=== PATIENT | female | born 1930 | race Caucasian/White ===

== ENCOUNTER 2017-11-21 09:10 | Day surgery (SDC) | payer MEDICARE, BC ==
[~2017-11-21 09:10] MED LIST: Albuterol 0.083% 2.5 MG/3 ML Neb Soln NEB ONE; Bisacodyl 5 MG Tab PO PRN; Docusate Sodium 100 MG Cap PO SCH; EPINEPHrine 1 MG/ML 30 ML MDV ONE; EPINEPHrine 1 MG/ML SDV ONE; Ketorolac 15 MG/ML SDV IVPUSH PRN; Lactated Ringers 1,000 ML IV SCH; Lidocaine 1%/Sod Bicarbonate in NS 8.4% 1 ML Syringe IDERM PRN; Magnesium Hydroxide 400 MG/5 ML Susp 30 ML Cup PO PRN; Morphine 2 MG/ML Syringe IVPUSH PRN; Naloxone 0.4 MG/ML SDV IVPUSH PRN; Ondansetron 4 MG/2 ML SDV IVPUSH PRN; Ropivacaine 0.5% 5 MG/ML 30 ML SDV ONE; Sennosides 8.6 MG Tab PO PRN; Sodium Chloride 0.9% 10 ML Syringe FLUSH PRN
[2017-11-21] MEDS: Lactated Ringers 1,000 ML IV SCH ×2 (09:30→15:48)
[2017-11-21] MEDS ORDERED: ceFAZolin 1 GM Vial ONE ×2 (09:44→09:57)
[2017-11-21] MEDS ORDERED: Iodine/Sodium Iodide 2% Tincture 30 ML Bottle ONE (09:44)
[2017-11-21] MEDS ORDERED: Bupivacaine 0.25% 30 ML SDV ONE (09:44)
[2017-11-21] MEDS ORDERED: Lidocaine 1% 2 ML ONE (09:49)
[2017-11-21] MEDS ORDERED: Propofol 200 MG/20 ML SDV ONE (09:49)
[2017-11-21] MEDS ORDERED: fentaNYL 100 MCG/2 ML SDV ONE (09:50)
[2017-11-21] MEDS ORDERED: Bupivacaine 0.75% 30 ML SDV ONE (09:55)
--- NOTE | 2017-11-21 09:56 | PCM.PREANE ---
Preanesthetic Assessment - Anesthesia/Transfusion/Family Hx Anesthesia History: Prior Anesthesia Without Reaction Family History of Anesthesia Reaction: No Transfusion History: No Prior Transfusion(s) Intubation History: Unknown - Review of Systems General: No Symptoms Pulmonary: No Symptoms (COPD (emphysema)Asthma) Cardiovascular: No Symptoms (HTN), Palpitations, Dyspnea on Exertion (steps) Gastrointestinal: No Symptoms, Constipation Neurological: No Symptoms Other: Reports: Easy Bleeding, Easy Bruising - Physical Assessment NPO Status Date: 11/20/17 NPO Status Time: 21:00 Pulse: 81 O2 Sat by Pulse Oximetry: 96 Respiratory Rate: 20 Blood Pressure: 160/88 Temperature: 37.1 C Vital Signs: Last Vital Signs Temp 37.1 C 11/21/17 09:10 Pulse 81 11/21/17 09:10 Resp 20 11/21/17 09:10 BP 160/88 H 11/21/17 09:10 Pulse Ox 96 11/21/17 09:10 Height: 1.63 m Weight: 63.503 kg ASA Class: 3 Mental Status: Alert & Oriented x3 Airway Class: Mallampati = 2 Dentition: Reports: Normal Dentition, Caries (3) Thyro-Mental Finger Breadths: 3 Mouth Opening Finger Breadths: 3 ROM/Head Extension: Full Lungs: Clear to Auscultation, Normal Respiratory Effort Cardiovascular: Regular Rate, Regular Rhythm, No Murmurs - Lab Values: Laboratory Last Values MRSA (PCR) Negative 10/28/17 12:36 All lab values reviewed and noted and within acceptable ranges to proceed with scheduled procedure. - Imaging/EKG Impressions: EKG: Sinus tachycardia rate 118, with PVC's noted. CXR:negative - Allergies Allergies/Adverse Reactions: Allergies Allergy/AdvReac Type Severity Reaction Status Date / Time No Known Allergies Allergy Verified 11/18/17 15:37 - Anesthesia Plan Pre-Op Medication Ordered: None - Acknowledgements Anesthesia Type Planned: Spinal (Right adductor canal block under US guidance for post operative pain control requested by Dr. Gaines) Pt an Appropriate Candidate for the Planned Anesthesia: Yes Alternatives and Risks of Anesthesia Discussed w Pt/Guardian: Yes Pt/Guardian Understands and Agrees with Anesthesia Plan: Yes PreAnesthesia Questionnaire HEENT History: Reports: Impaired Vision, Other (See Below) Other HEENT History: wears glasses, yag procedure Cardiovascular History: Reports: High Cholesterol, Hypertension, Other (See Below) Other Cardiovascular History: premature atiral complexes Respiratory History: Reports: Asthma, Other (See Below) Other Respiratory History: wheezing, emphysema, pneumonia, cough Gastrointestinal History: Reports: Chronic Constipation, Hemorrhoids TONGUE AND QUARTER STITCHER History: Reports: None Musculoskeletal History: Reports: Osteoarthritis, Other (See Below) Other Musculoskeletal History: right rotator cuff tear, closed distal radius fracture Neurological History: Reports: None Psychiatric History: Reports: None Endocrine/Metabolic History: Reports: Vitamin D Deficiency Hematologic History: Reports: None Immunologic History: Reports: None Oncologic (Cancer) History: Reports: Other (See Below) Other Oncologic History: endometrial Dermatologic History: Reports: None - Past Surgical History Head Surgeries/Procedures: Reports: None HEENT Surgical History: Reports: Cataract Surgery Cardiovascular Surgical History: Reports: None Respiratory Surgical History: Reports: None GI Surgical History: Reports: Colonoscopy, Hernia Repair/Other Female Surgical History: Reports: Hysterectomy Male Surgical History: Reports: None Endocrine Surgical History: Reports: None Neurological Surgical History: Reports: None Musculoskeletal Surgical History: Reports: Other (See Below) Other Musculoskeletal Surgeries/Procedures:: right total shoulder replacmenet Oncologic Surgical History: Reports: None Dermatological Surgical History: Reports: None - SUBSTANCE USE Smoking Status *Q: Never Smoker Recreational Drug Use History: No - HOME MEDS Home Medications: Home Meds Albuterol Sulfate [Proair Hfa] 2 puff INH QID PRN 09/16/17 [History] Albuterol/Ipratropium [DuoNeb 3.0-0.5 MG/3 ML] 1 dose NEB QID PRN 09/16/17 [ History] Aspirin [Halfprin] 81 mg PO DAILY 09/16/17 [History] Calcium Carbonate [Calcium] 500 mg PO DAILY 09/16/17 [History] Cholecalciferol (Vitamin D3) [Vitamin D3] 5,000 unit PO DAILY 09/16/17 [History] Diltiazem HCl [Cardizem] 120 mg PO DAILY 09/16/17 [History] Docusate Sodium [Colace] 50 mg PO BID 09/16/17 [History] Fluticasone/Salmeterol [Advair 250-50 Diskus] 1 puff INH BID 09/16/17 [History] Magnesium Oxide [Magnesium] 500 mg PO DAILY 09/16/17 [History] Rosuvastatin [Crestor] 10 mg PO DAILY 09/16/17 [History] Theophylline [Theophylline Anhydrous] 600 mg PO DAILY 09/16/17 [History] - CURRENT (IN HOUSE) MEDS Current Meds: Current Medications Aspirin (Ecotrin) 325 mg PO BID NAE Bisacodyl (Dulcolax) 5 mg PO DAILY PRN PRN Reason: Constipation Morphine Sulfate 8 mg/Epinephrine HCl 0.3 mg/Cefuroxime Sodium 750 mg/Ketorolac Tromethamine 30 mg/Sodium Chloride 27.9 ml 0 mg .XX ONETIME ONE Stop: 11/21/17 11:01 Docusate Sodium (Colace) 100 mg PO BID NAE Famotidine (Pepcid) 20 mg PO Q12H NAE Cefazolin Sodium/Dextrose 2 gm (/ Premix) 50 mls @ 100 mls/hr IV Q8H NAE Stop: 11/21/17 23:44 Ketorolac Tromethamine (Toradol) 15 mg IVPUSH Q6H PRN PRN Reason: Pain Magnesium Hydroxide (Milk Of Magnesia) 30 ml PO BID PRN PRN Reason: Constipation Morphine Sulfate (Morphine) 2 mg IVPUSH Q2H PRN PRN Reason: Breakthrough Pain Naloxone HCl (Narcan) 0.1 mg IVPUSH Q5M PRN PRN Reason: Oversedation Ondansetron HCl (Zofran) 4 mg IVPUSH Q6H PRN PRN Reason: Nausea/Vomiting Oxycodone/Acetaminophen (Percocet 325-5 Mg) 1 - 2 tab PO Q4H PRN PRN Reason: Pain Senna (Senna) 8.6 mg PO BID PRN PRN Reason: Constipation Discontinued Medications Albuterol (Proventil Neb Soln) 2.5 mg NEB ONETIME ONE Stop: 09/19/17 08:01 Bupivacaine HCl (Marcaine 0.25%) Confirm Administered Dose 30 ml .ROUTE .STK- MED ONE Stop: 11/21/17 09:45 Cefazolin Sodium (Ancef) Confirm Administered Dose 2 gm .ROUTE .STK-MED ONE Stop: 11/21/17 09:45 Epinephrine HCl (Adrenalin) Confirm Administered Dose 30 mg .ROUTE .STK-MED ONE Stop: 11/21/17 07:38 Epinephrine HCl (Adrenalin) Confirm Administered Dose 1 mg .ROUTE .STK-MED ONE Stop: 11/21/17 07:38 Lactated Ringer's (Ringers, Lactated) 1,000 mls @ 125 mls/hr IV ASDIRECTED NAE Stop: 09/19/17 23:00 Iodine (Iodine 2% Mild Tincture) Confirm Administered Dose 30 ml .ROUTE .STK- MED ONE Stop: 11/21/17 09:45 Lidocaine/Sodium Bicarbonate (Buffered Lidocaine 1% In Ns 8.4%) 0.25 ml IDERM ONETIME PRN PRN Reason: Prior to IV Start Stop: 09/19/17 18:00 Ropivacaine (Naropin 0.5%) Confirm Administered Dose 30 ml .ROUTE .STK-MED ONE Stop: 11/21/17 07:38 Sodium Chloride (Saline Flush) 10 ml FLUSH ASDIRECTED PRN PRN Reason: Keep Vein Open Stop: 09/19/17 18:00 Tranexamic Acid (Cyklokapron) Confirm Administered Dose 1,000 mg .ROUTE .STK- MED ONE Stop: 11/21/17 09:45 Vancomycin HCl (Vancomycin) Confirm Administered Dose 1 gm .ROUTE .STK-MED ONE Stop: 11/21/17 09:45
[2017-11-21] MEDS ORDERED: Lidocaine 1%/Sod Bicarbonate in NS 8.4% 1 ML Syringe IDERM ONE (10:14)
[2017-11-21] MEDS ORDERED: fentaNYL 100 MCG/2 ML SDV IVPUSH PRN (10:39)
[2017-11-21] MEDS ORDERED: Ondansetron 4 MG/2 ML SDV IVPUSH PRN (10:39)
[2017-11-21] MEDS ORDERED: ePHEDrine/Normal Saline 25 MG/5 ML Syringe ONE (10:45)
[2017-11-21] MEDS ORDERED: Morphine 8 MG, EPINEPHrine 0.3 MG, Cefuroxime 750 MG, Ketorolac 30 MG, Sodium Chloride ... ONE ×5 (11:00)
[2017-11-21] MEDS ORDERED: Lactated Ringers 1,000 ML ONE (11:07)
[2017-11-21] MEDS: Vancomycin 1 GM SDV ONE ×2 (11:29→11:31)
[2017-11-21] MEDS ORDERED: Albuterol/Ipratropium 3.0-0.5 MG/3 ML Neb Soln NEB PRN (12:00)
[2017-11-21] MEDS ORDERED: Albuterol 6.7 GM Inhaler INH PRN (12:00)
--- NOTE | 2017-11-21 12:11 | PCM.POSTAN ---
POST ANESTHESIA ASSESSMENT - MENTAL STATUS Mental Status: Alert, Oriented - VITAL SIGNS Pulse Rate: 81 SaO2: 93 Resp Rate: 16 Blood Pressure: 111/55 Temperature: 36.6 C - RESPIRATORY Respiratory Status: Respiratory Rate WNL, Airway Patent, O2 Saturation Stable - CARDIOVASCULAR CV Status: Pulse Rate WNL, Blood Pressure Stable - GASTROINTESTINAL GI Status: No Symptoms - PAIN Pain Score: 0 - POST OP HYDRATION Hydration Status: Adequate & Stable - OBSERVATIONS Free Text/Narrative:: no anesthesia complications noted
--- NOTE | 2017-11-21 12:34 | PCM.SN ---
- Free Text/Narrative Note: Right selective femoral nerve block at the adductor canal for post-procedure pain control Time Out: 1219 Start: 1219 End: 1226 Chart reviewed. Consent signed. Questions answered. Appropriate monitors applied. Time out performed. Right mid-shaft femur evaluated with ultrasound. Scanning medially femur, I was able to identify the femoral artery in the adductor canal. The saphenous nerve was lateral to the artery. The skin was prepped lateral to the ultrasound probe with chlorahexadine. The 21ga 4 insulated block needle was inserted under direct ultrasound guidance into the adductor canal. 20 mL of 0.5% ropivacaine with 1:200,000 epinephrine was injected cirmcumferentially about the nerve with intermittent negative aspiration every 5mL. Patient tolerated the procedure well. See pictures on progress note and vital signs on nurses notes. Block completed postoperatively. Ksahif Friedman CRNA
--- NOTE | 2017-11-21 12:53 | CR ---
Right knee: AP and lateral views of the right knee were obtained. Comparison: No prior study. Knee prosthesis is seen. Components are aligned. Soft tissue air noted from the surgical procedure. Underlying bony structures appear intact. Impression: 1. Satisfactory radiographic appearance of recently placed right knee prosthesis. Diagnostic code #2
[2017-11-21] MEDS: Famotidine 20 MG Tab PO SCH ×2 (17:27→20:07)
[2017-11-21] MEDS: ceFAZolin 2 GM in Premix Bag 1 BAG IV SCH (18:13)
--- NOTE | 2017-11-21 18:53 | PCM.SN ---
- Free Text/Narrative Note: In to see Renard. Overall she is doing well s/p R TKA day 0. She currently states her pain is controlled. Denies F/C, Headache, N/V/D, Chest pain, SOB, Cough. Working with Physical Therapy. Urinating. Using Incentive Spirometry. No supplemental O2. DVT prophylaxis. Physical Exam unremarkable- PERRLA, Lungs Clear, Normal Heart sounds, Neurovascularly intact in extremities with 2+ pulses. No other concerns from nursing.
[2017-11-21] MEDS: Acetaminophen/oxyCODONE 325-5 MG Tab PO PRN ×2 (20:07→21:33)
[2017-11-21] MEDS ORDERED: Non-Formulary Medication 1 Each (Docusate Sodium [Colace] 50 MG) PO SCH (21:00)
[2017-11-21] MEDS: Aspirin 325 MG Tab.EC PO SCH (21:44)
[2017-11-21] MEDS: FLUTICASONE INH SCH (22:21)
[2017-11-21] MEDS: SALMETEROL INH SCH (22:21)
[2017-11-22] MEDS: Acetaminophen/oxyCODONE 325-5 MG Tab PO PRN ×2 (00:47→06:31)
[2017-11-22] MEDS: ceFAZolin 2 GM in Premix Bag 1 BAG IV SCH ×2 (02:11→09:23)
[2017-11-22] MEDS: Famotidine 20 MG Tab PO SCH (06:31)
--- NOTE | 2017-11-22 06:45 | PCM.CONSN ---
- General Info Date of Service: 11/22/17 Subjective Update: In to see Renard. She is doing very well. She has been working with therapies. No nursing or patient concerns. Pain is controlled. Functional Status: Reports: Pain Controlled, Tolerating Diet, Ambulating, Urinating, Incentive Spirometry. Denies: New Symptoms - Review of Systems General: Reports: No Symptoms. Denies: Weakness, Fatigue, Malaise HEENT: Reports: No Symptoms. Denies: Sore Throat Pulmonary: Reports: No Symptoms. Denies: Shortness of Breath, Cough, Sputum, Wheezing Cardiovascular: Reports: No Symptoms. Denies: Chest Pain, Palpitations Gastrointestinal: Reports: No Symptoms. Denies: Abdominal Pain, Constipation, Diarrhea, Nausea, Vomiting Genitourinary: Reports: No Symptoms Musculoskeletal: Reports: No Symptoms Skin: Reports: No Symptoms Neurological: Reports: No Symptoms. Denies: Confusion Psychiatric: Reports: No Symptoms - Patient Data Vitals - Most Recent: Last Vital Signs Temp 97.5 F 11/22/17 04:19 Pulse 65 11/22/17 04:19 Resp 18 11/22/17 04:19 BP 110/54 L 11/22/17 04:19 Pulse Ox 92 L 11/22/17 04:19 Weight - Most Recent: 140 lb I&O - Last 24 Hours: Intake & Output 11/21/17 11/21/17 11/22/17 14:59 22:59 06:59 Intake Total 100 180 50 Output Total 325 450 400 Balance -225 -270 -350 Med Orders - Current: Current Medications Albuterol (Proventil Hfa) 0 gm INH QID PRN PRN Reason: asthma Albuterol/Ipratropium (Duoneb 3.0-0.5 Mg/3 Ml) 3 ml NEB QID PRN PRN Reason: asthma Aspirin (Ecotrin) 325 mg PO BID [facility] Last Admin: 11/21/17 21:44 Dose: Not Given Bisacodyl (Dulcolax) 5 mg PO DAILY PRN PRN Reason: Constipation Calcium Carbonate/Glycine (Tums) 500 mg PO DAILY@1200 [facility] Cholecalciferol (Vitamin D3) 5,000 unit PO DAILY@1200 [facility] Diltiazem HCl (Cardizem Cd) 120 mg PO DAILY [facility] Famotidine (Pepcid) 20 mg PO Q12H [facility] Last Admin: 11/22/17 06:31 Dose: 20 mg Cefazolin Sodium/Dextrose 2 gm (/ Premix) 50 mls @ 100 mls/hr IV Q8H [facility] Stop: 11/22/17 10:29 Last Admin: 11/22/17 02:11 Dose: 100 mls/hr Lactated Ringer's (Ringers, Lactated) 1,000 mls @ 125 mls/hr IV ASDIRECTED [facility] Last Admin: 11/21/17 15:48 Dose: 125 mls/hr Ketorolac Tromethamine (Toradol) 15 mg IVPUSH Q6H PRN PRN Reason: Pain Last Admin: 11/21/17 16:42 Dose: 15 mg Magnesium Hydroxide (Milk Of Magnesia) 30 ml PO BID PRN PRN Reason: Constipation Magnesium Oxide (Magnesium Oxide) 400 mg PO DAILY@1200 NAE Morphine Sulfate (Morphine) 2 mg IVPUSH Q2H PRN PRN Reason: Breakthrough Pain Naloxone HCl (Narcan) 0.1 mg IVPUSH Q5M PRN PRN Reason: Oversedation Ondansetron HCl (Zofran) 4 mg IVPUSH Q6H PRN PRN Reason: Nausea/Vomiting Oxycodone/Acetaminophen (Percocet 325-5 Mg) 1 - 2 tab PO Q4H PRN PRN Reason: Pain Last Admin: 11/22/17 06:31 Dose: 2 tab Fluticasone/Salmeterol 250/50 Mcg Inhaler 0 each INH BID [facility] Last Admin: 11/21/17 22:21 Dose: 1 each Rosuvastatin Calcium (Crestor) 10 mg PO DAILY [facility] Senna (Senna) 8.6 mg PO BID PRN PRN Reason: Constipation Theophylline (Theophylline Anhydrous) 600 mg PO DAILY [facility] Discontinued Medications Albuterol (Proventil Neb Soln) 2.5 mg NEB ONETIME ONE Stop: 09/19/17 08:01 Bupivacaine HCl (Marcaine 0.25%) Confirm Administered Dose 30 ml .ROUTE .STK- MED ONE Stop: 11/21/17 09:45 Last Admin: 11/21/17 11:27 Dose: 30 ml Bupivacaine HCl (Sensorcaine-Mpf 0.75%) Confirm Administered Dose 30 ml .ROUTE .STK-MED ONE Stop: 11/21/17 09:56 Cefazolin Sodium (Ancef) Confirm Administered Dose 2 gm .ROUTE .STK-MED ONE Stop: 11/21/17 09:45 Last Admin: 11/21/17 11:22 Dose: 2 gm Cefazolin Sodium (Ancef) Confirm Administered Dose 2 gm .ROUTE .STK-MED ONE Stop: 11/21/17 09:58 Morphine Sulfate 8 mg/Epinephrine HCl 0.3 mg/Cefuroxime Sodium 750 mg/Ketorolac Tromethamine 30 mg/Sodium Chloride 27.9 ml 0 mg .XX ONETIME ONE Stop: 11/21/17 11:01 Last Admin: 11/21/17 11:26 Dose: 788.3 mg Docusate Sodium (Colace) 100 mg PO BID [facility] Last Admin: 11/21/17 17:37 Dose: Not Given Ephedrine Sulfate (Ephedrine In Ns) Confirm Administered Dose 25 mg .ROUTE .STK- MED ONE Stop: 11/21/17 10:46 Epinephrine HCl (Adrenalin) Confirm Administered Dose 30 mg .ROUTE .STK-MED ONE Stop: 11/21/17 07:38 Epinephrine HCl (Adrenalin) Confirm Administered Dose 1 mg .ROUTE .STK-MED ONE Stop: 11/21/17 07:38 Fentanyl (Sublimaze) Confirm Administered Dose 100 mcg .ROUTE .STK-MED ONE Stop: 11/21/17 09:51 Fentanyl (Sublimaze) 50 mcg IVPUSH Q5M PRN PRN Reason: Pain Stop: 11/21/17 15:00 Lactated Ringer's (Ringers, Lactated) 1,000 mls @ 125 mls/hr IV ASDIRECTED [facility] Stop: 09/19/17 23:00 Lidocaine HCl (Xylocaine-Mpf 1%) Confirm Administered Dose 4 mls @ as directed .ROUTE .STK-MED ONE Stop: 11/21/17 09:50 Lactated Ringer's (Ringers, Lactated) Confirm Administered Dose 1,000 mls @ as directed .ROUTE .STK-MED ONE Stop: 11/21/17 11:08 Iodine (Iodine 2% Mild Tincture) Confirm Administered Dose 30 ml .ROUTE .STK- MED ONE Stop: 11/21/17 09:45 Last Admin: 11/21/17 11:21 Dose: 18 ml Lidocaine/Sodium Bicarbonate (Buffered Lidocaine 1% In Ns 8.4%) 0.25 ml IDERM ONETIME PRN PRN Reason: Prior to IV Start Stop: 09/19/17 18:00 Lidocaine/Sodium Bicarbonate (Buffered Lidocaine 1% In Ns 8.4%) 0.25 ml IDERM ONETIME ONE Stop: 11/21/17 10:15 Last Admin: 11/21/17 09:29 Dose: 0.25 ml Non-Formulary Medication (Docusate Sodium [Colace]) 50 mg PO BID NAE Ondansetron HCl (Zofran) 4 mg IVPUSH ONETIME PRN PRN Reason: Nausea/Vomiting Stop: 11/21/17 15:00 Propofol (Diprivan 20 Ml) Confirm Administered Dose 400 mg .ROUTE .STK-MED ONE Stop: 11/21/17 09:50 Ropivacaine (Naropin 0.5%) Confirm Administered Dose 30 ml .ROUTE .STK-MED ONE Stop: 11/21/17 07:38 Sodium Chloride (Saline Flush) 10 ml FLUSH ASDIRECTED PRN PRN Reason: Keep Vein Open Stop: 09/19/17 18:00 Tranexamic Acid (Cyklokapron) Confirm Administered Dose 1,000 mg .ROUTE .STK- MED ONE Stop: 11/21/17 09:45 Last Admin: 11/21/17 11:38 Dose: 1,000 mg Vancomycin HCl (Vancomycin) Confirm Administered Dose 1 gm .ROUTE .STK-MED ONE Stop: 11/21/17 09:45 Last Admin: 11/21/17 11:31 Dose: 1 gm - Exam Quality Assessment: DVT Prophylaxis General: Alert, Oriented, Cooperative HEENT: Pupils Equal, Pupils Reactive, EOMI, Mucous Membr. Moist/[place] Neck: Supple, Trachea Midline Lungs: Clear to Auscultation, Normal Respiratory Effort Cardiovascular: Regular Rate, Regular Rhythm GI/Abdominal Exam: Normal Bowel Sounds, Soft, Non-Tender, No Organomegaly, No Distention (Female) Exam: Deferred Back Exam: Normal Inspection, Full Range of Motion Extremities: No Pedal Edema, Normal Capillary Refill, Leg Pain, Limited Range of Motion, Other (Bandage in place on right leg. Cooling pack in place ) Peripheral Pulses: 2+: Radial (L), Radial (R), Dorsalis Pedis (L), Dorsalis Pedis (R) Skin: Warm, Dry, Intact Wound/Incisions: Dressing Dry and Intact, No Drainage Neurological: No New Focal Deficit Psy/Mental Status: Alert, Normal Affect, Normal Mood Consult PN Assessment/Plan POD#: 1 (1) S/P total knee arthroplasty SNOMED Code(s): 8331167886340, 349038069, 9386051986279 Code(s): Z96.659 - PRESENCE OF UNSPECIFIED ARTIFICIAL KNEE JOINT Current Visit: Yes Qualifiers: Laterality: right Qualified Code(s): Z96.651 - Presence of right artificial knee joint (2) Osteoarthritis SNOMED Code(s): 059896920 Code(s): M19.90 - UNSPECIFIED OSTEOARTHRITIS, UNSPECIFIED SITE Priority: High Current Visit: Yes Qualifiers: Osteoarthritis location: knee Osteoarthritis type: primary Laterality: right Qualified Code(s): M17.11 - Unilateral primary osteoarthritis, right knee (3) HLD (hyperlipidemia) SNOMED Code(s): 46737397 Code(s): E78.5 - HYPERLIPIDEMIA, UNSPECIFIED Priority: Low Current Visit : No Qualifiers: Hyperlipidemia type: unspecified Qualified Code(s): E78.5 - Hyperlipidemia , unspecified (4) Asthma SNOMED Code(s): 225399602 Code(s): J45.909 - UNSPECIFIED ASTHMA, UNCOMPLICATED Priority: Medium Current Visit: No Qualifiers: Asthma severity: unspecified severity Asthma persistence: unspecified Asthma complication type: unspecified Qualified Code(s): J45.909 - Unspecified asthma, uncomplicated (5) Vitamin D deficiency SNOMED Code(s): 95352290 Code(s): E55.9 - VITAMIN D DEFICIENCY, UNSPECIFIED Priority: Low Current Visit: No (6) Emphysema of lung SNOMED Code(s): 32615746 Code(s): J43.9 - EMPHYSEMA, UNSPECIFIED Priority: Medium Current Visit: No Qualifiers: Emphysema type: unspecified Qualified Code(s): J43.9 - Emphysema, unspecified (7) HTN (hypertension) SNOMED Code(s): 76125816 Code(s): I10 - ESSENTIAL (PRIMARY) HYPERTENSION Priority: Medium Current Visit: No Qualifiers: Hypertension type: unspecified Qualified Code(s): I10 - Essential (primary ) hypertension (8) Insomnia SNOMED Code(s): 720947315 Code(s): G47.00 - INSOMNIA, UNSPECIFIED Priority: Low Current Visit: No Qualifiers: Insomnia type: unspecified Qualified Code(s): G47.00 - Insomnia, unspecified Problem List Initiated/Reviewed/Updated: Yes Plan: I/P: Acute: S/P right total knee arthroplasty - post-operative day 1 -DVT prophylaxis and pain management per primary care team -PT/OT -IS/RT -Monitor oxygen saturation -Titrate oxygen as needed -Vital signs stable -Monitor labs -Pre-operative Hgb was 15.9, Now 11.7 -Pre-operative GFR was 60, Now 53 Osteoarthritis of right knee -Pain management per primary care team Chronic: Frequent PACs HLD Asthma Vit D Deficiency Emphysemia Constipation HTN Hx/o endometrial cancer Hemorrhoids Plan: CM for discharge planning GI prophylaxis Home medications as indicated Other orders as listed above Routine AM labs She is a full code. Her PCP is Dr. Linnea Whitley Overall from a hospitalist standpoint Renard is doing well. Labs and vital signs have been stable and pain is controlled. She has been up working with therapies. She has urinated and he is off oxygen. She has been utilizing her IS. She is cleared from discharge pending primary team and PT/OT approval. Thank you for allowing us to participate in the care of this patient!!
--- NOTE | 2017-11-22 07:47 | PCM.SURGPN ---
- General Info Date of Service: 11/22/17 POD#: 1 Functional Status: Reports: Pain Controlled, Tolerating Diet, Ambulating, Urinating, Incentive Spirometry, Other (The pt has been independent with mobility in her room.) - Patient Data Vitals - Most Recent: Last Vital Signs Temp 97.5 F 11/22/17 04:19 Pulse 65 11/22/17 04:19 Resp 18 11/22/17 04:19 BP 110/54 L 11/22/17 04:19 Pulse Ox 92 L 11/22/17 04:19 Weight - Most Recent: 140 lb I&O - Last 24 Hours: Intake & Output 11/21/17 11/22/17 11/22/17 22:59 06:59 14:59 Intake Total 180 50 Output Total 450 400 Balance -270 -350 Lab Results Last 24 Hrs: Laboratory Results - last 24 hr 11/22/17 Range/Units 06:25 WBC 5.77 (3.98-10.04) K/mm3 RBC 3.94 L (3.98-5.22) M/mm3 Hgb 11.7 (11.2-15.7) gm/L Hct 36.9 (34.1-44.9) % MCV 93.7 (79.4-94.8) fl MCH 29.7 (25.6-32.2) pg MCHC 31.7 L (32.2-35.5) g/dl RDW Std Deviation 52.0 H (36.4-46.3) fL Plt Count 126 L (182-369) K/mm3 MPV 9.3 L (9.4-12.3) fl Med Orders - Current: Current Medications Albuterol (Proventil Hfa) 0 gm INH QID PRN PRN Reason: asthma Albuterol/Ipratropium (Duoneb 3.0-0.5 Mg/3 Ml) 3 ml NEB QID PRN PRN Reason: asthma Aspirin (Ecotrin) 325 mg PO BID [facility] Last Admin: 11/21/17 21:44 Dose: Not Given Bisacodyl (Dulcolax) 5 mg PO DAILY PRN PRN Reason: Constipation Calcium Carbonate/Glycine (Tums) 500 mg PO DAILY@1200 NAE Cholecalciferol (Vitamin D3) 5,000 unit PO DAILY@1200 NAE Diltiazem HCl (Cardizem Cd) 120 mg PO DAILY [facility] Famotidine (Pepcid) 20 mg PO Q12H [facility] Last Admin: 11/22/17 06:31 Dose: 20 mg Cefazolin Sodium/Dextrose 2 gm (/ Premix) 50 mls @ 100 mls/hr IV Q8H [facility] Stop: 11/22/17 10:29 Last Admin: 11/22/17 02:11 Dose: 100 mls/hr Lactated Ringer's (Ringers, Lactated) 1,000 mls @ 125 mls/hr IV ASDIRECTED [facility] Last Admin: 11/21/17 15:48 Dose: 125 mls/hr Ketorolac Tromethamine (Toradol) 15 mg IVPUSH Q6H PRN PRN Reason: Pain Last Admin: 11/21/17 16:42 Dose: 15 mg Magnesium Hydroxide (Milk Of Magnesia) 30 ml PO BID PRN PRN Reason: Constipation Magnesium Oxide (Magnesium Oxide) 400 mg PO DAILY@1200 NAE Morphine Sulfate (Morphine) 2 mg IVPUSH Q2H PRN PRN Reason: Breakthrough Pain Naloxone HCl (Narcan) 0.1 mg IVPUSH Q5M PRN PRN Reason: Oversedation Ondansetron HCl (Zofran) 4 mg IVPUSH Q6H PRN PRN Reason: Nausea/Vomiting Oxycodone/Acetaminophen (Percocet 325-5 Mg) 1 - 2 tab PO Q4H PRN PRN Reason: Pain Last Admin: 11/22/17 06:31 Dose: 2 tab Fluticasone/Salmeterol 250/50 Mcg Inhaler 0 each INH BID [facility] Last Admin: 11/21/17 22:21 Dose: 1 each Rosuvastatin Calcium (Crestor) 10 mg PO DAILY [facility] Senna (Senna) 8.6 mg PO BID PRN PRN Reason: Constipation Theophylline (Theophylline Anhydrous) 600 mg PO DAILY [facility] Discontinued Medications Albuterol (Proventil Neb Soln) 2.5 mg NEB ONETIME ONE Stop: 09/19/17 08:01 Bupivacaine HCl (Marcaine 0.25%) Confirm Administered Dose 30 ml .ROUTE .STK- MED ONE Stop: 11/21/17 09:45 Last Admin: 11/21/17 11:27 Dose: 30 ml Bupivacaine HCl (Sensorcaine-Mpf 0.75%) Confirm Administered Dose 30 ml .ROUTE .STK-MED ONE Stop: 11/21/17 09:56 Cefazolin Sodium (Ancef) Confirm Administered Dose 2 gm .ROUTE .STK-MED ONE Stop: 11/21/17 09:45 Last Admin: 11/21/17 11:22 Dose: 2 gm Cefazolin Sodium (Ancef) Confirm Administered Dose 2 gm .ROUTE .STK-MED ONE Stop: 11/21/17 09:58 Morphine Sulfate 8 mg/Epinephrine HCl 0.3 mg/Cefuroxime Sodium 750 mg/Ketorolac Tromethamine 30 mg/Sodium Chloride 27.9 ml 0 mg .XX ONETIME ONE Stop: 11/21/17 11:01 Last Admin: 11/21/17 11:26 Dose: 788.3 mg Docusate Sodium (Colace) 100 mg PO BID [facility] Last Admin: 11/21/17 17:37 Dose: Not Given Ephedrine Sulfate (Ephedrine In Ns) Confirm Administered Dose 25 mg .ROUTE .STK- MED ONE Stop: 11/21/17 10:46 Epinephrine HCl (Adrenalin) Confirm Administered Dose 30 mg .ROUTE .STK-MED ONE Stop: 11/21/17 07:38 Epinephrine HCl (Adrenalin) Confirm Administered Dose 1 mg .ROUTE .STK-MED ONE Stop: 11/21/17 07:38 Fentanyl (Sublimaze) Confirm Administered Dose 100 mcg .ROUTE .STK-MED ONE Stop: 11/21/17 09:51 Fentanyl (Sublimaze) 50 mcg IVPUSH Q5M PRN PRN Reason: Pain Stop: 11/21/17 15:00 Lactated Ringer's (Ringers, Lactated) 1,000 mls @ 125 mls/hr IV ASDIRECTED [facility] Stop: 09/19/17 23:00 Lidocaine HCl (Xylocaine-Mpf 1%) Confirm Administered Dose 4 mls @ as directed .ROUTE .STK-MED ONE Stop: 11/21/17 09:50 Lactated Ringer's (Ringers, Lactated) Confirm Administered Dose 1,000 mls @ as directed .ROUTE .STK-MED ONE Stop: 11/21/17 11:08 Iodine (Iodine 2% Mild Tincture) Confirm Administered Dose 30 ml .ROUTE .STK- MED ONE Stop: 11/21/17 09:45 Last Admin: 11/21/17 11:21 Dose: 18 ml Lidocaine/Sodium Bicarbonate (Buffered Lidocaine 1% In Ns 8.4%) 0.25 ml IDERM ONETIME PRN PRN Reason: Prior to IV Start Stop: 09/19/17 18:00 Lidocaine/Sodium Bicarbonate (Buffered Lidocaine 1% In Ns 8.4%) 0.25 ml IDERM ONETIME ONE Stop: 11/21/17 10:15 Last Admin: 11/21/17 09:29 Dose: 0.25 ml Non-Formulary Medication (Docusate Sodium [Colace]) 50 mg PO BID NAE Ondansetron HCl (Zofran) 4 mg IVPUSH ONETIME PRN PRN Reason: Nausea/Vomiting Stop: 11/21/17 15:00 Propofol (Diprivan 20 Ml) Confirm Administered Dose 400 mg .ROUTE .STK-MED ONE Stop: 11/21/17 09:50 Ropivacaine (Naropin 0.5%) Confirm Administered Dose 30 ml .ROUTE .STK-MED ONE Stop: 11/21/17 07:38 Sodium Chloride (Saline Flush) 10 ml FLUSH ASDIRECTED PRN PRN Reason: Keep Vein Open Stop: 09/19/17 18:00 Tranexamic Acid (Cyklokapron) Confirm Administered Dose 1,000 mg .ROUTE .STK- MED ONE Stop: 11/21/17 09:45 Last Admin: 11/21/17 11:38 Dose: 1,000 mg Vancomycin HCl (Vancomycin) Confirm Administered Dose 1 gm .ROUTE .STK-MED ONE Stop: 11/21/17 09:45 Last Admin: 11/21/17 11:31 Dose: 1 gm - Exam Wound/Incisions: Dressing Dry and Intact General: Alert, Cooperative, No Acute Distress Lungs: Normal Respiratory Effort Extremities: Other (NVS intact for BLE. Jackie's negative.) - Problem List Review Problem List Initiated/Reviewed/Updated: Yes - My Orders Last 24 Hours: Active Orders 24 hr Category Date Time Status Patient Status [ADT] Routine ADT 11/21/17 07:11 Active Ambulate [RC] PER UNIT ROUTINE Care 11/21/17 07:11 Active Communication Order [RC] ROUTINE Care 11/21/17 10:39 Active Cooling Warming Measures [RC] ASDIRECTED Care 11/21/17 10:39 Inactive May Shower [RC] ASDIRECTED Care 11/21/17 07:11 Active Notify Provider Consults [RC] ASDIRECTED Care 11/21/17 07:13 Active Oxygen Therapy [RC] PRN Care 11/21/17 07:11 Active RT Incentive Spirometry [RC] Q1HWA Care 11/21/17 07:10 Active Ready for Discharge [RC] PER UNIT ROUTINE Care 11/22/17 07:45 Ordered Up to Chair [RC] ASDIRECTED Care 11/21/17 07:11 Active Urinary Catheter Assessment [RC] ASDIRECTED Care 11/21/17 11:02 Active Urinary Catheter Removal [RC] Per Unit Routine Care 11/21/17 07:10 Active Vital Signs [RC] Q15M Care 11/21/17 10:39 Inactive Vital Signs [RC] Q4HR Care 11/21/17 07:11 Active Consult to Physician [CONS] Routine Cons 11/21/17 07:11 Active OT Evaluation and Treatment [CONS] Routine Cons 11/21/17 07:10 Active PT Evaluation and Treatment [CONS] Routine Cons 11/21/17 07:10 Active Regular Diet [DIET] Diet 11/21/17 Lunch Active COMPREHENSIVE METABOLIC PN,CMP [CHEM] AM Lab 11/22/17 06:25 Received Acetaminophen/oxyCODONE [Percocet 325-5 MG] Med 11/21/17 07:10 Active 1 - 2 tab PO Q4H PRN Albuterol [Proventil HFA] Med 11/21/17 12:00 Active 0 gm INH QID PRN Albuterol/Ipratropium [DuoNeb 3.0-0.5 MG/3 ML] Med 11/21/17 12:00 Active 3 ml NEB QID PRN Aspirin [Ecotrin] Med 11/21/17 09:00 Active 325 mg PO BID Bisacodyl [Dulcolax] Med 11/21/17 07:11 Active 5 mg PO DAILY PRN Calcium Carbonate [Tums] Med 11/22/17 12:00 Active 500 mg PO DAILY@1200 Cholecalciferol (Vitamin D3) [Vitamin D3] Med 11/22/17 12:00 Active 5,000 unit PO DAILY@1200 Diltiazem [Cardizem CD] Med 11/22/17 09:00 Active 120 mg PO DAILY Famotidine [Pepcid] Med 11/21/17 07:15 Active 20 mg PO Q12H Ketorolac [Toradol] Med 11/21/17 07:10 Active 15 mg IVPUSH Q6H PRN Lactated Ringers [Ringers, Lactated] 1,000 ml Med 11/21/17 10:15 Active IV ASDIRECTED Magnesium Hydroxide [Milk of Magnesia] Med 11/21/17 07:11 Active 30 ml PO BID PRN Magnesium Oxide Med 11/22/17 12:00 Active 400 mg PO DAILY@1200 Morphine Med 11/21/17 07:11 Active 2 mg IVPUSH Q2H PRN Naloxone [Narcan] Med 11/21/17 07:11 Active 0.1 mg IVPUSH Q5M PRN Ondansetron [Zofran] Med 11/21/17 07:11 Active 4 mg IVPUSH Q6H PRN Patient's Own Medication [Ptom] Med 11/21/17 21:00 Active 0 each INH BID Rosuvastatin [Crestor] Med 11/22/17 09:00 Active 10 mg PO DAILY Sennosides [Senna] Med 11/21/17 07:11 Active 8.6 mg PO BID PRN Theophylline [Theophylline Anhydrous] Med 11/22/17 09:00 Active 600 mg PO DAILY ceFAZolin [Ancef] 2 gm Med 11/21/17 18:00 Active Premix Bag 1 bag IV Q8H Antiembolic Hose [OM.PC] Per Unit Routine Oth 11/21/17 07:13 Ordered Ice Therapy [OM.PC] Per Unit Routine Oth 11/21/17 07:12 Ordered Sequential Compression Device [OM.PC] Per Unit Routine Oth 11/21/17 07:10 Ordered Resuscitation Status Routine Resus Stat 11/21/17 07:11 Ordered Medication Orders Albuterol (Proventil Hfa) 0 gm INH QID PRN PRN Reason: asthma Albuterol/Ipratropium (Duoneb 3.0-0.5 Mg/3 Ml) 3 ml NEB QID PRN PRN Reason: asthma Aspirin (Ecotrin) 325 mg PO BID [facility] Last Admin: 11/21/17 21:44 Dose: Bisacodyl (Dulcolax) 5 mg PO DAILY PRN PRN Reason: Constipation Calcium Carbonate/Glycine (Tums) 500 mg PO DAILY@1200 [facility] Cholecalciferol (Vitamin D3) 5,000 unit PO DAILY@1200 [facility] Diltiazem HCl (Cardizem Cd) 120 mg PO DAILY [facility] Famotidine (Pepcid) 20 mg PO Q12H [facility] Last Admin: 11/22/17 06:31 Dose: 20 mg Admin: 11/21/17 20:07 Dose: 20 mg Admin: 11/21/17 17:27 Dose: Not Given Cefazolin Sodium/Dextrose 2 gm (/ Premix) 50 mls @ 100 mls/hr IV Q8H [facility] Stop: 11/22/17 10:29 Last Admin: 11/22/17 02:11 Dose: 100 mls/hr Infusion: 11/21/17 18:43 Dose: 100 mls/hr Admin: 11/21/17 18:13 Dose: 100 mls/hr Lactated Ringer's (Ringers, Lactated) 1,000 mls @ 125 mls/hr IV ASDIRECTED [facility] Last Admin: 11/21/17 15:48 Dose: 125 mls/hr Infusion: 11/21/17 15:48 Dose: 125 mls/hr Admin: 11/21/17 09:30 Dose: 125 mls/hr Ketorolac Tromethamine (Toradol) 15 mg IVPUSH Q6H PRN PRN Reason: Pain Last Admin: 11/21/17 16:42 Dose: 15 mg Magnesium Hydroxide (Milk Of Magnesia) 30 ml PO BID PRN PRN Reason: Constipation Magnesium Oxide (Magnesium Oxide) 400 mg PO DAILY@1200 [facility] Morphine Sulfate (Morphine) 2 mg IVPUSH Q2H PRN PRN Reason: Breakthrough Pain Naloxone HCl (Narcan) 0.1 mg IVPUSH Q5M PRN PRN Reason: Oversedation Ondansetron HCl (Zofran) 4 mg IVPUSH Q6H PRN PRN Reason: Nausea/Vomiting Oxycodone/Acetaminophen (Percocet 325-5 Mg) 1 - 2 tab PO Q4H PRN PRN Reason: Pain Last Admin: 11/22/17 06:31 Dose: 2 tab Admin: 11/22/17 00:47 Dose: 2 tab Admin: 11/21/17 21:33 Dose: 1 tab Admin: 11/21/17 20:07 Dose: 1 tab Fluticasone/Salmeterol 250/50 Mcg Inhaler 0 each INH BID NAE Last Admin: 11/21/17 22:21 Dose: 1 each Rosuvastatin Calcium (Crestor) 10 mg PO DAILY [facility] Senna (Senna) 8.6 mg PO BID PRN PRN Reason: Constipation Theophylline (Theophylline Anhydrous) 600 mg PO DAILY NAE - Assessment Assessment (Free Text/Narrative):: POD#1 - right TKA - Plan Plan (Free Text/Narrative):: 1. Hgb 11.7. 2. 325mg ASA BID, frequent mobility, TEDs. 3. Discharge to home today if therapy goals met and cleared by Hospitalist service. 4. Outpatient P.T. The pt's case was discussed with Dr. Gaines.
--- NOTE | 2017-11-22 08:07 | PCM48HPAN ---
Post Anesthesia Note - EVALUATION WITHIN 48HRS OF ANESTHETIC Vital Signs in Normal Range: Yes Patient Participated in Evaluation: Yes Respiratory Function Stable: Yes Airway Patent: Yes Cardiovascular Function Stable: Yes Hydration Status Stable: Yes Pain Control Satisfactory: Yes Nausea and Vomiting Control Satisfactory: Yes Mental Status Recovered: Yes - COMMENTS/OBSERVATIONS Free Text/Narrative:: Doing well. Patient denies any anesthetic complications
[2017-11-22] MEDS ORDERED: Rosuvastatin 10 MG Tab PO SCH (09:00)
[2017-11-22] MEDS ORDERED: Theophylline 300 MG Tab.ER PO SCH (09:00)
[2017-11-22] MEDS ORDERED: Diltiazem 120 MG Cap.CD PO SCH (09:00)
[2017-11-22] MEDS: SALMETEROL INH SCH (09:19)
[2017-11-22] MEDS: FLUTICASONE INH SCH (09:19)
[2017-11-22] MEDS: Aspirin 325 MG Tab.EC PO SCH (09:22)
[2017-11-22] MEDS ORDERED: Magnesium Oxide 400 MG Tab PO SCH (12:00)
[2017-11-22] MEDS ORDERED: Cholecalciferol (Vitamin D3) 5,000 UNIT Tab PO SCH (12:00)
[2017-11-22] MEDS ORDERED: Calcium Carbonate 500 MG Tab.Chew PO SCH (12:00)
--- NOTE | 2017-12-01 08:06 | PCM.OPNOTE ---
- General Post-Op/Procedure Note Date of Surgery/Procedure: 11/21/17 Operative Procedure(s): right total knee arthroplasty Pre Op Diagnosis: right knee osteoarthrosis Post-Op Diagnosis: Same Anesthesia Technique: Local, MAC, Spinal Primary Surgeon: Kevin Gaines Anesthesia Provider: Kashif Friedman Knockout Man: Magdalene Rivero Knockout Man: Ivett Cantrell in mLs: 5 Complications: None Condition: Good Free Text/Narrative:: size 4/4 11mm 32x10
--- NOTE | 2017-12-01 08:37 | OR ---
DATE OF OPERATION: 11/21/2017 SURGEON: Kevin Gaines MD OPERATION PERFORMED: Right total knee arthroplasty. PREOPERATIVE DIAGNOSIS: Right knee osteoarthrosis. POSTOPERATIVE DIAGNOSIS: Right knee osteoarthrosis. ANESTHESIA: Local MAC with spinal. ANESTHESIA PROVIDER: Kashif Friedman CRNA. ASSISTANTS: Magdalene Rivero PA-C, and Ivett Cantrell LPN. ESTIMATED BLOOD LOSS: 5 mL. COMPLICATIONS: None. CONDITION: Stable. IMPLANTS: 1. Fellows size 4 cemented PS femur. 2. Darlene size 4 cemented [place] tibial base plate. 3. Darlene size 4 11 mm PS X3 polyethylene. 4. Darlene size 32 x 10 mm cemented asymmetric patella. DESCRIPTION OF PROCEDURE: The patient was identified in the preop holding area. Proper site was marked and identified by the surgeon. The patient was taken back to the operating theater. After adequate anesthesia, the patient's right lower extremity had a nonsterile tourniquet applied and it was then sterilely prepped and draped in the usual sterile fashion. OR timeout was performed. The patient received 2 g IV Ancef. At this time, right lower extremity was exsanguinated. Tourniquet was insufflated to 300 mmHg. Standard medial parapatellar incision was made. Medial parapatellar arthrotomy was created. Deep fibers of the MCL were raised and anterior fat pad was resected. At this time, attention was turned to the patella. Patella measured a 22 and was resected to a 13 for a 32 x 10 mm patella. Drill holes were then drilled and found to be in adequate position. The drill was then drilled in the distal femur and the intramedullary distal femoral cutting guide was then placed. 8 mm was resected off the distal femur and was found to be an adequate resection. Sizing guide was placed. It was found to be a size 4 femur that was shown on the implant record at the beginning of this dictation. The drill holes were drilled for the epicondylar axis using Whitesides line and epicondyles as reference. At this time, the 4-in-1 cutting block was placed. An anterior posterior and anterior and posterior chamfer cuts were then completed. The correct size box cut was then placed and the box cut was completed and found to be an adequate resection. Attention was turned to the tibia. The posterior medial lateral retractors were placed. The extramedullary tibial guide was placed. It was placed in the old footprint of the ACL. It was aligned with the center of the ankle and 0 degrees of slope, 9 mm was then resected off the unaffected lateral side. There was found to be an acceptable reduction. At this time, posterior osteophytes were removed along with medial and lateral meniscus. A trial implant was placed with a correct sized tibia that was mentioned at the beginning of the dictation. A Fellows size 4 11 mm PS X3 polyethylene was then placed. The patient's knee was brought through range of motion. The patella was tracking centrally and was stable to varus and valgus stress. Alignment was found to be roughly at 0 degrees. At this time, cement was mixed on the back table. The tibia was stamped and drilled in proper rotation. All cut surfaces were irrigated with pulse lavage irrigation with Ancef and then completely dried. Once this was completed, then the cement was ready. The universal tibial base plate was cemented in place. Next, the Fellows size 4 cemented PS femur cemented into place and the Fellows size 4 11 mm PS X3 polyethylene was placed. The patient's knee was brought into full extension. Excess cement was removed. The patella was then cemented in place at this time. Tourniquet was deflated. One liter dilute Betadine solution was irrigated through the knee along with 3 L of pulse lavage irrigation with Ancef. Periarticular injection was then completed. The patient's knee was brought through a range of motion. Once the cement had time to set up and it was found to be stable to varus valgus stress, the patella was tracking centrally with full range of motion. At this time, a #2 barbed suture was used for closure of the medial parapatellar arthrotomy. Topical tranexamic acid was placed. 2-0 Vicryl was used subcutaneously, a running 3-0 Monocryl was used subcuticularly. The patient tolerated the procedure well and was sent to the PACU in stable condition. PRISCA /[id number]
== END 2017-11-22 10:00 | disposition home or self-care (01) ==
LOC: JD.SDS 09:10 → JD.OB 09:14 → JD.SDS 11-22 10:00
PROVIDERS: ATTEND Orthopaedic Surgery
DX: M17.11 Unilateral primary osteoarthritis, right knee (principal); I10 Essential (primary) hypertension; J43.9 Emphysema, unspecified; E78.2 Mixed hyperlipidemia; E55.9 Vitamin D deficiency, unspecified; G47.00 Insomnia, unspecified; Z79.82 Long term (current) use of aspirin; Z79.51 Long term (current) use of inhaled steroids; Z79.899 Other long term (current) drug therapy
CPT/HCPCS: 27447; 36415; 64447; 73560; 80053; 85027; 87641; 94640; 97110; 97116; 97161; 97165; 97535; A9270; C1713; C1776; J0171; J0690; J0697; J1885; J2270; J2704; J2795; J3010; J3370; J3490; J7050; J7120; 01402; 20610; 64450; J2001

== ENCOUNTER 2018-08-03 06:08 | Day surgery (SDC) | payer MEDICARE, BC ==
--- NOTE | 2018-08-01 10:24 | PCM.PREANE ---
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)) Cardiovascular: No Symptoms (History of HTN), Palpitations, Dyspnea on Exertion Gastrointestinal: Constipation Other: Reports: Easy Bleeding, Easy Bruising - Physical Assessment NPO Status Date: 08/02/18 Vital Signs: Last Vital Signs Temp 97.5 F 08/03/18 06:15 Pulse 73 08/03/18 06:15 Resp 16 08/03/18 06:15 BP 138/78 08/03/18 06:15 Pulse Ox 97 08/03/18 06:15 Height: 5 ft 4.17 in ASA Class: 3 Mental Status: Alert & Oriented x3 Airway Class: Mallampati = 2 Dentition: Reports: Normal Dentition, Caries Thyro-Mental Finger Breadths: 3 Mouth Opening Finger Breadths: 3 ROM/Head Extension: Full - Allergies Allergies/Adverse Reactions: Allergies Allergy/AdvReac Type Severity Reaction Status Date / Time No Known Allergies Allergy Verified 08/02/18 12:09 - Anesthesia Plan Pre-Op Medication Ordered: None - Acknowledgements Anesthesia Type Planned: Spinal (Left addductor canal block under US guidance for post operative pain control requested by Dr. Gaines) PreAnesthesia Questionnaire HEENT History: Reports: Impaired Vision, Other (See Below) Other HEENT History: wears glasses, yag procedure Cardiovascular History: Reports: High Cholesterol, Hypertension, Other (See Below) Other Cardiovascular History: premature atiral complexes Respiratory History: Reports: Asthma, Other (See Below) Other Respiratory History: wheezing, emphysema, pneumonia, cough Gastrointestinal History: Reports: Chronic Constipation, Hemorrhoids ACID DIPPER History: Reports: None Musculoskeletal History: Reports: Osteoarthritis, Other (See Below) Other Musculoskeletal History: right rotator cuff tear, closed distal radius fracture Neurological History: Reports: None Psychiatric History: Reports: None Endocrine/Metabolic History: Reports: Vitamin D Deficiency Hematologic History: Reports: None Immunologic History: Reports: None Oncologic (Cancer) History: Reports: Other (See Below) Other Oncologic History: endometrial Dermatologic History: Reports: None - Past Surgical History Head Surgeries/Procedures: Reports: None HEENT Surgical History: Reports: Cataract Surgery Cardiovascular Surgical History: Reports: None Respiratory Surgical History: Reports: None GI Surgical History: Reports: Colonoscopy, Hernia Repair/Other Female Surgical History: Reports: Hysterectomy Male Surgical History: Reports: None Endocrine Surgical History: Reports: None Neurological Surgical History: Reports: None Musculoskeletal Surgical History: Reports: Other (See Below) Other Musculoskeletal Surgeries/Procedures:: right total shoulder replacmenet Oncologic Surgical History: Reports: None Dermatological Surgical History: Reports: None - HOME MEDS Home Medications: Home Meds Albuterol Sulfate [Proair Hfa] 2 puff INH QID PRN 09/16/17 [History] Albuterol/Ipratropium [DuoNeb 3.0-0.5 MG/3 ML] 1 dose NEB QID PRN 09/16/17 [ History] Calcium Carbonate [Calcium] 500 mg PO DAILY 09/16/17 [History] Cholecalciferol (Vitamin D3) [Vitamin D3] 5,000 unit PO DAILY 09/16/17 [History] Diltiazem HCl [Cardizem] 120 mg PO DAILY 09/16/17 [History] Docusate Sodium [Colace] 50 mg PO BID 09/16/17 [History] Fluticasone/Salmeterol [Advair 250-50 Diskus] 1 puff INH BID 09/16/17 [History] Magnesium Oxide [Magnesium] 500 mg PO DAILY 09/16/17 [History] Rosuvastatin [Crestor] 10 mg PO DAILY 09/16/17 [History] Theophylline [Theophylline Anhydrous] 300 mg PO DAILY 09/16/17 [History] Aspirin [Children's Aspirin] 81 mg PO DAILY 08/02/18 [History] Hydrochlorothiazide [Microzide] 12.5 mg PO BID 08/02/18 [History] - CURRENT (IN HOUSE) MEDS Current Meds: Current Medications Albuterol (Proventil Neb Soln) 2.5 mg NEB ONETIME [facility] Stop: 08/03/18 18:00 Lactated Ringer's (Ringers, Lactated) 1,000 mls @ 125 mls/hr IV ASDIRECTED [facility] Stop: 08/03/18 23:00 Lidocaine/Sodium Bicarbonate (Buffered Lidocaine 1% In Ns 8.4%) 0.25 ml IDERM ONETIME PRN PRN Reason: Prior to IV Start Stop: 08/03/18 18:00 Sodium Chloride (Saline Flush) 10 ml FLUSH ASDIRECTED PRN PRN Reason: Keep Vein Open Stop: 08/03/18 18:00 <Johan Smith - Last Filed: 08/03/18 06:39> Preanesthetic Assessment - Procedure Proposed Procedure: left total knee arthroplasty - Anesthesia/Transfusion/Family Hx Anesthesia History: Prior Anesthesia Without Reaction Family History of Anesthesia Reaction: No Transfusion History: No Prior Transfusion(s) - Review of Systems General: No Symptoms Pulmonary: No Symptoms Cardiovascular: No Symptoms, Palpitations, Dyspnea on Exertion Gastrointestinal: Constipation Neurological: No Symptoms Other: Reports: Easy Bruising - Physical Assessment NPO Status Time: 20:30 Pulse: 73 O2 Sat by Pulse Oximetry: 97 Respiratory Rate: 16 Blood Pressure: 138/78 Temperature: 97.5 F Weight: 63.957 kg ASA Class: 3 Mental Status: Alert & Oriented x3 Airway Class: Mallampati = 2 Dentition: Reports: Normal Dentition Thyro-Mental Finger Breadths: 3 Mouth Opening Finger Breadths: 3 ROM/Head Extension: Full Lungs: Clear to Auscultation, Normal Respiratory Effort Cardiovascular: Regular Rate, Regular Rhythm - Blood Blood Available: No - Anesthesia Plan Pre-Op Medication Ordered: None - Acknowledgements Anesthesia Type Planned: Spinal Pt an Appropriate Candidate for the Planned Anesthesia: Yes Alternatives and Risks of Anesthesia Discussed w Pt/Guardian: Yes Pt/Guardian Understands and Agrees with Anesthesia Plan: Yes PreAnesthesia Questionnaire HEENT History: Reports: Impaired Vision, Other (See Below) Cardiovascular History: Reports: High Cholesterol, Hypertension, Other (See Below) Respiratory History: Reports: Asthma, Other (See Below) Gastrointestinal History: Reports: Chronic Constipation, Hemorrhoids ACID DIPPER History: Reports: None Musculoskeletal History: Reports: Osteoarthritis, Other (See Below) Neurological History: Reports: None Psychiatric History: Reports: None Endocrine/Metabolic History: Reports: Vitamin D Deficiency Hematologic History: Reports: None Immunologic History: Reports: None Oncologic (Cancer) History: Reports: Other (See Below) Dermatologic History: Reports: None - Infectious Disease History Infectious Disease History: Reports: None - Past Surgical History HEENT Surgical History: Reports: Cataract Surgery GI Surgical History: Reports: Colonoscopy, Hernia Repair/Other Female Surgical History: Reports: Hysterectomy Musculoskeletal Surgical History: Reports: Knee Replacement, Other (See Below) - SUBSTANCE USE Smoking Status *Q: Never Smoker Tobacco Use Within Last Twelve Months: No Second Hand Smoke Exposure: No Days Per Week of Alcohol Use: 1 (occasional) Recreational Drug Use History: No
[~2018-08-03 06:08] MED LIST changes: -Albuterol 0.083% 2.5 MG/3 ML Neb Soln NEB ONE; +Albuterol 0.083% 2.5 MG/3 ML Neb Soln NEB SCH; -Bisacodyl 5 MG Tab PO PRN; -Docusate Sodium 100 MG Cap PO SCH; -EPINEPHrine 1 MG/ML 30 ML MDV ONE; -EPINEPHrine 1 MG/ML SDV ONE; -Ketorolac 15 MG/ML SDV IVPUSH PRN; -Magnesium Hydroxide 400 MG/5 ML Susp 30 ML Cup PO PRN; -Morphine 2 MG/ML Syringe IVPUSH PRN; -Naloxone 0.4 MG/ML SDV IVPUSH PRN; -Ondansetron 4 MG/2 ML SDV IVPUSH PRN; -Ropivacaine 0.5% 5 MG/ML 30 ML SDV ONE; -Sennosides 8.6 MG Tab PO PRN
[2018-08-03] MEDS ORDERED: Iodine/Sodium Iodide 2% Tincture 30 ML Bottle ONE (06:35)
[2018-08-03] MEDS ORDERED: ceFAZolin 1 GM Vial ONE (06:35)
[2018-08-03] MEDS ORDERED: Bupivacaine 0.25% 30 ML SDV ONE (06:35)
[2018-08-03] MEDS ORDERED: Sennosides 8.6 MG Tab PO PRN (06:42)
[2018-08-03] MEDS ORDERED: Ketorolac 15 MG/ML SDV IVPUSH PRN (06:42)
[2018-08-03] MEDS ORDERED: Naloxone 0.4 MG/ML SDV IVPUSH PRN (06:42)
[2018-08-03] MEDS ORDERED: Bisacodyl 5 MG Tab PO PRN (06:42)
[2018-08-03] MEDS ORDERED: Ondansetron 4 MG/2 ML SDV IVPUSH PRN ×2 (06:42→07:34)
[2018-08-03] MEDS ORDERED: Morphine 2 MG/ML Syringe IVPUSH PRN (06:42)
[2018-08-03] MEDS ORDERED: fentaNYL 100 MCG/2 ML SDV ONE (06:48)
[2018-08-03] MEDS ORDERED: Propofol 200 MG/20 ML SDV ONE ×2 (06:48→07:58)
[2018-08-03] MEDS ORDERED: Bupivacaine 0.75% 30 ML SDV ONE (06:53)
[2018-08-03] MEDS ORDERED: Lactated Ringers 1,000 ML ONE (07:26)
[2018-08-03] MEDS ORDERED: Morphine 8 MG, EPINEPHrine 0.3 MG, Cefuroxime 750 MG, Ketorolac 30 MG, Sodium Chloride ... ONE ×5 (07:30)
[2018-08-03] MEDS ORDERED: fentaNYL 100 MCG/2 ML SDV IVPUSH PRN (07:34)
[2018-08-03] MEDS ORDERED: HYDROmorphone 0.5 MG/0.5 ML Syringe IVPUSH PRN (07:34)
[2018-08-03] MEDS ORDERED: ePHEDrine/Normal Saline 25 MG/5 ML Syringe ONE (07:40)
[2018-08-03] MEDS ORDERED: EPINEPHrine 1 MG/ML SDV ONE (07:58)
[2018-08-03] MEDS ORDERED: Ropivacaine 0.5% 5 MG/ML 30 ML SDV ONE (07:58)
[2018-08-03] MEDS: Vancomycin 1 GM SDV ONE ×2 (08:19→08:21)
--- NOTE | 2018-08-03 09:00 | PCM.POSTAN ---
POST ANESTHESIA ASSESSMENT - MENTAL STATUS Mental Status: Alert, Oriented - VITAL SIGNS Pulse Rate: 77 SaO2: 94 Resp Rate: 18 Blood Pressure: 106/67 Temperature: 97.9 F - RESPIRATORY Respiratory Status: Respiratory Rate WNL, Airway Patent, O2 Saturation Stable, Supplemental Oxygen - CARDIOVASCULAR CV Status: Pulse Rate WNL, Blood Pressure Stable - GASTROINTESTINAL GI Status: No Symptoms - PAIN Pain Score: 0 - POST OP HYDRATION Hydration Status: Adequate & Stable
--- NOTE | 2018-08-03 09:38 | PCM.SN ---
- Free Text/Narrative Note: Left selective femoral nerve block at the adductor canal for post-procedure pain control under US guidance requested by Dr. Gaines. Time Out: 923 Start: 926 End: 927 Chart reviewed. Consent signed. Questions answered. Appropriate monitors applied. Time out performed. Left mid-shaft femur identified with ultrasound, scanning medially of femur, the femoral artery in the adductor canal visualized , and the femoral nerve located laterally to the artery. The skin was prepped lateral to the ultrasound probe with chlorahexadine times two. The 21ga 4 insulated block needle was inserted under direct ultrasound guidance into the adductor canal. 25mL of 0.5% ropivacaine with 1:200,000 epinephrine was injected circumferentially around the nerve with intermittent negative aspiration noted. Patient tolerated the procedure well. Sterile technique noted along with sterile gloves, mask, and sterile probe cover. See picture on progress note and vital signs on nurses notes. Block completed in PACU. Johan Smith CRNA
--- NOTE | 2018-08-03 09:45 | CR ---
Left knee: AP and lateral views of the left knee were obtained. Comparison: No previous knee exam. Knee prosthesis is seen. Components are aligned. Soft tissue air noted from the surgical procedure. Underlying bony structures are intact. Impression: 1. Satisfactory appearance of recently placed left knee prosthesis. Diagnostic code #2
[2018-08-03] MEDS ORDERED: Albuterol/Ipratropium 3.0-0.5 MG/3 ML Neb Soln NEB PRN (11:36)
[2018-08-03] MEDS ORDERED: Albuterol 6.7 GM Inhaler INH PRN (11:36)
[2018-08-03] MEDS: Acetaminophen/oxyCODONE 325-5 MG Tab PO PRN ×2 (13:39→21:05)
[2018-08-03] MEDS: ceFAZolin 2 GM in Premix Bag 1 BAG IV SCH ×2 (15:30→22:25)
[2018-08-03] MEDS ORDERED: Aluminum Hydroxide/Magnesium Hydroxide/Simethicone Susp 30 ML Cup PO PRN (17:58)
[2018-08-03] MEDS: ADVAIR INH SCH (20:18)
[2018-08-03] MEDS ORDERED: Docusate Sodium 100 MG Cap PO SCH (21:00)
[2018-08-03] MEDS: Famotidine 20 MG Tab PO SCH (21:06)
[2018-08-04] MEDS: Acetaminophen/oxyCODONE 325-5 MG Tab PO PRN ×2 (04:16→08:29)
[2018-08-04] MEDS: ceFAZolin 2 GM in Premix Bag 1 BAG IV SCH (06:21)
[2018-08-04] MEDS: Famotidine 20 MG Tab PO SCH (08:31)
[2018-08-04] MEDS ORDERED: Theophylline 300 MG Tab.ER PO SCH (09:00)
[2018-08-04] MEDS ORDERED: Rosuvastatin 10 MG Tab PO SCH (09:00)
[2018-08-04] MEDS ORDERED: Magnesium Oxide 400 MG Tab PO SCH (09:00)
[2018-08-04] MEDS ORDERED: Cholecalciferol (Vitamin D3) 5,000 UNIT Tab PO SCH (09:00)
[2018-08-04] MEDS ORDERED: Calcium Carbonate 600 MG Tab PO SCH (09:00)
[2018-08-04] MEDS ORDERED: Aspirin 325 MG Tab.EC PO SCH (09:00)
[2018-08-04] MEDS ORDERED: Docusate Sodium 100 MG Cap PO SCH (09:00)
[2018-08-04] MEDS: ADVAIR INH SCH (09:42)
--- NOTE | 2018-08-04 09:54 | PCM48HPAN ---
Post Anesthesia Note - EVALUATION WITHIN 48HRS OF ANESTHETIC Vital Signs in Normal Range: Yes Patient Participated in Evaluation: Yes Respiratory Function Stable: Yes Airway Patent: Yes Cardiovascular Function Stable: Yes Hydration Status Stable: Yes Pain Control Satisfactory: Yes Nausea and Vomiting Control Satisfactory: Yes Mental Status Recovered: Yes (up walking in [place]. block worked well. some pain today) Pulse Rate: 95 Resp Rate: 18 Temperature: 98.1 F Blood Pressure: 135/69
[2018-08-05] MEDS ORDERED: Famotidine 20 MG Tab PO SCH (09:00)
--- NOTE | 2018-08-07 10:58 | PCM.SURGPN ---
- General Info Date of Service: 08/11/18 POD#: 1 Functional Status: Reports: Pain Controlled, Tolerating Diet, Ambulating, Urinating, Incentive Spirometry, Other (The pt is prepared for discharge to home with her daughter.) - Patient Data Vitals - Most Recent: Last Vital Signs Temp 98.1 F 08/04/18 09:53 Pulse 95 08/04/18 09:53 Resp 18 08/04/18 09:53 BP 135/69 08/04/18 09:53 Pulse Ox 94 L 08/04/18 09:42 Weight - Most Recent: 141 lb Med Orders - Current: Current Medications Discontinued Medications Al Hydroxide/Mg Hydroxide (Mag-Al Plus) 30 ml PO Q4H PRN PRN Reason: Heartburn Albuterol (Proventil Neb Soln) 2.5 mg NEB ONETIME [facility] Stop: 08/03/18 18:00 Last Admin: 08/03/18 06:37 Dose: 2.5 mg Albuterol (Proventil Hfa) 0 gm INH QID PRN PRN Reason: asthma Albuterol/Ipratropium (Duoneb 3.0-0.5 Mg/3 Ml) 3 ml NEB QID PRN PRN Reason: asthma Aspirin (Ecotrin) 325 mg PO BID [facility] Last Admin: 08/04/18 08:31 Dose: 325 mg Bisacodyl (Dulcolax) 5 mg PO DAILY PRN PRN Reason: Constipation Bupivacaine HCl (Marcaine 0.25%) Confirm Administered Dose 30 ml .ROUTE .STK- MED ONE Stop: 08/03/18 06:36 Last Admin: 08/03/18 08:18 Dose: 30 ml Bupivacaine HCl (Sensorcaine-Mpf 0.75%) Confirm Administered Dose 30 ml .ROUTE .STK-MED ONE Stop: 08/03/18 06:54 Calcium Carbonate/Glycine (Calcium Carbonate) 600 mg PO DAILY [facility] Last Admin: 08/04/18 08:31 Dose: 600 mg Cefazolin Sodium (Ancef) Confirm Administered Dose 2 gm .ROUTE .STK-MED ONE Stop: 08/03/18 06:36 Last Admin: 08/03/18 08:15 Dose: 2 gm Cholecalciferol (Vitamin D3) 5,000 unit PO DAILY [facility] Last Admin: 08/04/18 08:31 Dose: 5,000 unit Morphine Sulfate 8 mg/Epinephrine HCl 0.3 mg/Cefuroxime Sodium 750 mg/Ketorolac Tromethamine 30 mg/Sodium Chloride 27.9 ml 0 mg .XX ONETIME ONE Stop: 08/03/18 07:31 Last Admin: 08/03/18 08:18 Dose: 788.3 mg Docusate Sodium (Colace) 100 mg PO BID [facility] Docusate Sodium (Colace) 100 mg PO DAILY [facility] Last Admin: 08/04/18 08:31 Dose: 100 mg Ephedrine Sulfate (Ephedrine In Ns) Confirm Administered Dose 25 mg .ROUTE .STK- MED ONE Stop: 08/03/18 07:41 Epinephrine HCl (Adrenalin) Confirm Administered Dose 1 mg .ROUTE .STK-MED ONE Stop: 08/03/18 07:59 Famotidine (Pepcid) 20 mg PO Q12H [facility] Last Admin: 08/04/18 08:31 Dose: 20 mg Famotidine (Pepcid) 20 mg PO DAILY [facility] Fentanyl (Sublimaze) Confirm Administered Dose 100 mcg .ROUTE .STK-MED ONE Stop: 08/03/18 06:49 Fentanyl (Sublimaze) 50 mcg IVPUSH Q5M PRN PRN Reason: Pain Stop: 08/03/18 12:00 Hydromorphone HCl (Dilaudid) 0.5 mg IVPUSH Q10M PRN PRN Reason: Pain (severe 7-10) Stop: 08/03/18 12:00 Lactated Ringer's (Ringers, Lactated) 1,000 mls @ 125 mls/hr IV ASDIRECTED [facility] Stop: 08/03/18 23:00 Last Admin: 08/03/18 06:38 Dose: 125 mls/hr Cefazolin Sodium/Dextrose 2 gm (/ Premix) 50 mls @ 100 mls/hr IV Q8H [facility] Stop: 08/04/18 07:29 Last Admin: 08/04/18 06:21 Dose: 100 mls/hr Lidocaine HCl (Xylocaine-Mpf 1%) Confirm Administered Dose 5 mls @ as directed .ROUTE .STK-MED ONE Stop: 08/03/18 06:54 Lactated Ringer's (Ringers, Lactated) Confirm Administered Dose 1,000 mls @ as directed .ROUTE .STK-MED ONE Stop: 08/03/18 07:27 Iodine (Iodine 2% Mild Tincture) Confirm Administered Dose 30 ml .ROUTE .STK- MED ONE Stop: 08/03/18 06:36 Last Admin: 08/03/18 08:12 Dose: 18 ml Ketorolac Tromethamine (Toradol) 15 mg IVPUSH Q6H PRN PRN Reason: Pain Last Admin: 08/03/18 19:48 Dose: 15 mg Lidocaine/Sodium Bicarbonate (Buffered Lidocaine 1% In Ns 8.4%) 0.25 ml IDERM ONETIME PRN PRN Reason: Prior to IV Start Stop: 08/03/18 18:00 Last Admin: 08/03/18 06:38 Dose: 0.25 ml Magnesium Oxide (Magnesium Oxide) 400 mg PO DAILY [facility] Last Admin: 08/04/18 08:31 Dose: 400 mg Morphine Sulfate (Morphine) 2 mg IVPUSH Q2H PRN PRN Reason: Breakthrough Pain Naloxone HCl (Narcan) 0.1 mg IVPUSH Q5M PRN PRN Reason: Oversedation Advair 250/50 (Diskus Own Med) 1 puff INH BID [facility] Last Admin: 08/04/18 09:42 Dose: 1 puff Ondansetron HCl (Zofran) 4 mg IVPUSH Q6H PRN PRN Reason: Nausea/Vomiting Last Admin: 08/03/18 18:19 Dose: 4 mg Ondansetron HCl (Zofran) 4 mg IVPUSH ONETIME PRN PRN Reason: Nausea/Vomiting Stop: 08/03/18 12:00 Oxycodone/Acetaminophen (Percocet 325-5 Mg) 1 - 2 tab PO Q6H PRN PRN Reason: Pain Last Admin: 08/04/18 08:29 Dose: 2 tab Propofol (Diprivan 20 Ml) Confirm Administered Dose 200 mg .ROUTE .STK-MED ONE Stop: 08/03/18 06:49 Propofol (Diprivan 20 Ml) Confirm Administered Dose 200 mg .ROUTE .STK-MED ONE Stop: 08/03/18 07:59 Ropivacaine (Naropin 0.5%) Confirm Administered Dose 30 ml .ROUTE .STK-MED ONE Stop: 08/03/18 07:59 Rosuvastatin Calcium (Crestor) 10 mg PO DAILY [facility] Last Admin: 08/04/18 08:31 Dose: 10 mg Senna (Senna) 8.6 mg PO BID PRN PRN Reason: Constipation Sodium Chloride (Saline Flush) 10 ml FLUSH ASDIRECTED PRN PRN Reason: Keep Vein Open Stop: 08/03/18 18:00 Theophylline (Theophylline Anhydrous) 300 mg PO DAILY [facility] Last Admin: 08/04/18 08:32 Dose: 300 mg Tranexamic Acid (Cyklokapron) Confirm Administered Dose 1,000 mg .ROUTE .STK- MED ONE Stop: 08/03/18 06:36 Last Admin: 08/03/18 08:27 Dose: 1,000 mg Vancomycin HCl (Vancomycin) Confirm Administered Dose 1 gm .ROUTE .STK-MED ONE Stop: 08/03/18 06:36 Last Admin: 08/03/18 08:21 Dose: 1 gm - Exam Wound/Incisions: Dressing Dry and Intact General: Alert, Cooperative, No Acute Distress Lungs: Normal Respiratory Effort Extremities: Other (NVS intact for BLE. Jackie's negative.) - Problem List Review Problem List Initiated/Reviewed/Updated: Yes - Assessment Assessment (Free Text/Narrative):: POD#1 - s/p left TKA - Plan Plan (Free Text/Narrative):: 1. Hgb 13.2. 2. Discharge to home today. 3. 325mg ASA PO BID, frequent mobility, TEDs. 4. Outpatient therapy. The pt was evaluated by Dr. Gaines.
--- NOTE | 2018-08-08 16:28 | PCM.OPNOTE ---
- General Post-Op/Procedure Note Date of Surgery/Procedure: 08/03/18 Operative Procedure(s): left total knee arthroplasty Pre Op Diagnosis: left knee osteoarthrosis Post-Op Diagnosis: Same Anesthesia Technique: Local, MAC, Spinal Primary Surgeon: Kevin Gaines Anesthesia Provider: Johan Smith Inhalation Therapy Teacher: Magdalene Rivero Inhalation Therapy Teacher: Ivett Cantrell in mLs: 5 Complications: None Condition: Good Free Text/Narrative:: size 4/4 9mm 32x10
--- NOTE | 2018-08-08 16:46 | OR ---
DATE OF OPERATION: 08/03/2018 SURGEON: Kevin Gaines MD OPERATION PERFORMED: Left total knee arthroplasty. PREOPERATIVE DIAGNOSIS: Left knee osteoarthrosis. POSTOPERATIVE DIAGNOSIS: Left knee osteoarthrosis. ANESTHESIA: Local MAC with spinal. ANESTHESIA PROVIDER: Johan Smith CRNA. NEWS WIRE PHOTO OPERATOR: Magdalene Rivero PA-C, and Ivett Cantrell LPN. ESTIMATED BLOOD LOSS: 5 mL. COMPLICATIONS: None. CONDITION: Stable. IMPLANTS: 1. Darlene size 4 cemented PS femur. 2. Darlene size 4 cemented universal tibial base plate. 3. Darlene size 4, 9 mm PS X3 polyethylene. 4. [place] size 32 x 10 mm cemented asymmetric patella. DESCRIPTION OF PROCEDURE: The patient was identified in the preop holding area. Proper site was marked and identified by the surgeon. The patient was taken back to the operating theater. After adequate anesthesia, the patient's left lower extremity had a nonsterile tourniquet applied and it was sterilely prepped and draped in the usual sterile fashion. OR time-out was performed. The patient received 2 g IV Ancef. At this time, the left lower extremity was exsanguinated. Tourniquet was insufflated to 300 mmHg. Standard medial parapatellar incision was made. Medial parapatellar arthrotomy was created. Deep fibers of the MCL were raised and anterior fat pad was resected. At this time, attention was turned to the patella. Patella measured 22, it was resected to a 13 for 32 x 10 mm patella. Drill holes were then drilled and found to be in adequate position. The drill was then drilled in the distal femur and the intramedullary distal femoral cutting guide was then placed. 8 mm was resected off the distal femur and was found to be an adequate resection. Sizing guide was placed. It was found to be a size 4 cemented PS femur that was shown on the implant record at the beginning of this dictation. The drill holes were drilled for the epicondylar axis using [place] line and epicondyles as reference. At this time, the 4-in-1 cutting block was placed. An anterior posterior and anterior and posterior chamfer cuts were then completed. Box cut was then completed at this time. Attention was turned to the tibia. The posterior medial lateral retractors were placed. The extramedullary tibial guide was placed. It was placed in the old footprint of the ACL. It was aligned with the center of the ankle and 0 degrees of slope, 9 mm was then resected off the unaffected side. There was found to be an acceptable reduction. At this time, posterior osteophytes were removed along with medial and lateral meniscus. A trial implant was placed with a correct sized tibia that was mentioned at the beginning of the dictation. A [place] size 4, 9 mm PS X3 polyethylene insert was then placed. The patient's knee was brought through range of motion. The patella was tracking centrally and was stable to varus and valgus stress. Alignment was found to be roughly at 0 degrees. The tibia was stamped and drilled in proper rotation. Cement was mixed on the back table. The universal tibial base plate was impacted in place. Next, the Darlene size 4 cemented PS femur impacted into place and the Darlene size 4, 9 mm PS X3 polyethylene insert was placed. The patient's knee was brought into full extension. The patella was then cemented in place at this time. One liter dilute Betadine solution was irrigated through the knee along with 3 L of pulse lavage irrigation with Ancef. Periarticular injection was then completed. The patient's knee was brought through a range of motion. Once the cement had time to set up and it was found to be stable to varus valgus stress, the patella was tracking centrally with full range of motion. At this time, a #2 barbed suture was used for closure of the medial parapatellar arthrotomy. Topical tranexamic acid was placed. 2-0 Vicryl was used subcutaneously, Prineo was used for the skin. The patient tolerated the procedure well and was sent to the PACU in stable condition. PRISCA /[id number] RIYA
== END 2018-08-04 11:40 | disposition home or self-care (01) ==
LOC: JD.SDS 06:08 → JD.MS 06:11 → JD.SDS 08-04 11:40
PROVIDERS: ATTEND Orthopaedic Surgery
DX: M17.12 Unilateral primary osteoarthritis, left knee (principal); G89.18 Other acute postprocedural pain; I10 Essential (primary) hypertension; E78.2 Mixed hyperlipidemia; E55.9 Vitamin D deficiency, unspecified; E78.00 Pure hypercholesterolemia, unspecified; J45.909 Unspecified asthma, uncomplicated; Z79.82 Long term (current) use of aspirin; Z79.899 Other long term (current) drug therapy; Z98.890 Other specified postprocedural states
CPT/HCPCS: 27447; 36415; 64447; 73560; 80053; 85027; 94640; 97110; 97116; 97161; 97165; 97535; A9270; C1713; C1776; J0171; J0690; J0697; J1885; J2001; J2270; J2405; J2704; J2795; J3010; J3370; J3490; J7050; J7120; 01402; 64450